=== PATIENT | female | born 1985 | race Caucasian/White ===

== ENCOUNTER 2021-12-09 19:17 | Emergency (ER) | payer MEDICAID ==
[~2021-12-09] VITALS: Ht 162.6 cm; Wt 56.4 kg
[2021-12-09 20:30] VITALS: BP 120/76
== END 2021-12-09 20:10 | disposition home or self-care (01) ==
LOC: ED 19:17
DX: L25.0 Unspecified contact dermatitis due to cosmetics (principal)